=== PATIENT | male | born 1975 ===

== ENCOUNTER 2023-02-17 09:36 | Day surgery (SDC) | payer OTHER ==
[~2023-02-17 09:36] MED LIST: LIPITOR40 MG PO; METFORMIN HCL500 M3 PO
[2023-02-17] MEDS ORDERED: MIRALAX17 GM PO (11:57)
[2023-02-17] MEDS ORDERED: TRAMADOL HCL50 MG PO (11:57)
[2023-02-17] MEDS ORDERED: KETO10TA2 PO (11:57)
[2023-02-17] MEDS ORDERED: TYLENOL ARTHRI650 MG PO (11:57)
== END 2023-02-17 20:10 | disposition home or self-care (01) ==
LOC: CIR.AMB 09:36
PROVIDERS: ATTEND Surgery
DX: K40.90 Unilateral inguinal hernia, without obstruction or gangrene, not specified as recurrent (principal); Z20.822 Contact with and (suspected) exposure to COVID-19
CPT/HCPCS: 49650; C1781